=== PATIENT | male | born 2000 | race Caucasian/White ===

== ENCOUNTER 2020-07-02 11:25 | Emergency (ER) | payer OTHER ==
[2020-07-02] MEDS ORDERED: BUFFERED LIDOCAINE 10 ML SYRINGE SUBQ STA (13:44)
--- NOTE | 2020-07-02 13:47 | ED Physician Documentation ---
History of Present Illness - Stated complaint Stated Complaint: L HAND LAC - Chief complaint Chief Complaint: Laceration - Additonal information Additional information: 20-year-old male presents emergency department for evaluation of the left middle distal finger laceration sustained when he was at work. He cut the radial side of the middle finger with a knife. The cut extends from just below the cuticle of the distal phalanx to the middle of the fat pad. Patient's tetanus is up-to-date. This gentleman is in the [employer]. 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 Extends from just below the cuticle to the fat pad. Distal sensation is partially disrupted. Normal flexion extension of finger against resistance.) Results - Vitals Vitals: Vital Signs - 24 hr 07/02/20 11:38 Temperature 36.9 C Heart Rate 66 Respiratory 16 Rate Blood Pressure 147/75 H O2 Saturation 97 Oxygen O2 Source Room air - Rads (name of study) finger xr Radiology: Final report received (no fx) Procedures - Laceration (location) left middle finger Length in cm: 2 Wound type: Linear Neurovascular status: Motor intact, Vascular intact. No: Sensory intact Tendon involvement: Tendon intact Anesthesia: Lidocaine 1% Wound Preparation: Chlorhexadine, Irrigated copiously NS Skin layer closure: Nylon, Size #-0 - enter number (4), Sutures - enter # (3) Other: Patient tolerated well, No complications, Tetanus UTD Complexity: Simple PD MEDICAL DECISION MAKING - ED course Complexity details: reviewed results, re-evaluated patient, d/w patient ED course: 20-year-old male presents the emergency department for laceration on the left distal middle finger sustained when he was at work with the [employer]. Given the location of the laceration and x-ray was completed to rule out fracture but none was seen. He does have some distal numbness and tingling and he may have lacerated the nerve. However tendon is intact. Wound was closed with 3 sutures. Routine wound care and emergent return precautions discussed - Consults Consults: Request consultant teacher evaluate patient Departure - Departure Disposition: 01 Home, Self Care Clinical Impression: Finger laceration Qualifiers: Encounter type: initial encounter Finger: middle finger Damage to nail status: without damage Foreign body presence: without foreign body Laterality: left Qualified Code(s): S61.213A - Laceration without foreign body of left middle finger without damage to nail, initial encounter Condition: Stable Record reviewed to determine appropriate education?: Yes Instructions: ED Laceration Hand Comments: Your suture should be removed in 7 to 10 days. In 24 hours you may remove the dressing wash gently with warm soap and water, apply any antibiotic ointment and a simple bandage. Your tetanus is up-to-date. Please attempt to keep your wound clean and dry. Do not submerge it in dirty dishwater or bath water. Return to the emergency department if you have any concerns of infection such as redness, fevers milky drainage increased pain. follow up with [facility] for suture removal
--- NOTE | 2020-07-02 14:07 | XRAY Report ---
PROCEDURE: Finger(s) LT INDICATIONS: r/o middle finger distal fx TECHNIQUE: AP hand, 2 views of the middle finger(s) acquired. COMPARISON: None FINDINGS: Bones: No fractures or dislocations. No suspicious bony lesions. Soft tissues: No suspicious soft tissue calcifications. IMPRESSION: No fracture or dislocation is seen in third finger. Reviewed by: Aaron Martinez MD on 07/02/2020 2:06 PM PST Approved by: Aaron Martinez MD on 07/02/2020 2:06 PM [facility] Station ID: [id number]
[2020-07-02] MEDS ORDERED: BACITRACIN ZINC OINT 1 PACKET TOP STA (14:25)
[2020-07-02 14:33] VITALS: BP 136/63
== END 2020-07-02 14:40 | disposition home or self-care (01) ==
LOC: EDBD → ED 11:25
DX: S61.213A Laceration without foreign body of left middle finger without damage to nail, initial encounter (principal); W26.0XXA Contact with knife, initial encounter; Y99.1 Military activity
CPT/HCPCS: 12001; 99281; 99283

== ENCOUNTER 2021-06-02 09:45 | Emergency (ER) | payer OTHER ==
[2021-06-02 09:52] VITALS: BP 140/73
[2021-06-02 10:12] LABS: RAPID STREP SCREEN Negative (Negative)
--- NOTE | 2021-06-02 10:34 | ED Physician Documentation ---
PD HPI URI - Stated complaint Stated Complaint: SORE THROAT - Chief complaint Chief Complaint: Heent - History obtained from History obtained from: Patient - History of Present Illness Timing - onset: How many days ago (3) Timing duration: Days (3) Timing details: Gradual onset, Still present Associated symptoms: Fever, Chills, Sore throat, Swollen nodes. No: Nasal congestion, Dry cough, NVD Contributing factors: No: Sick contact Similar symptoms before: Has not had sx before Review of Systems Constitutional: reports: Fever, Chills, Myalgias Nose: denies: Rhinorrhea / runny nose, Congestion Throat: reports: Sore throat Respiratory: denies: Cough GI: denies: Nausea, Vomiting Skin: denies: Rash PD PAST MEDICAL HISTORY - Past Medical History Cardiovascular: None Respiratory: None Neuro: None Endocrine/Autoimmune: None GI: None : None HEENT: None Psych: None Musculoskeletal: None Derm: None - Past Surgical History Past Surgical History: No - Present Medications Home Medications: Ambulatory Orders Medication Instructions Recorded Confirmed Valacyclovir HCl [Valtrex] 500 mg PO DAILY 07/02/20 06/02/21 Amoxicillin 500 mg PO TID #18 cap 06/02/21 dexAMETHasone [Decadron] 4 mg PO DAILY #5 tablet 06/02/21 - Allergies Allergies/Adverse Reactions: Allergies Allergy/AdvReac Type Severity Reaction Status Date / Time No Known Drug Allergies Allergy Verified 06/02/21 09:49 - Social History Does the pt smoke?: No Smoking Status: Never smoker Does the pt drink ETOH?: No Does the pt have substance abuse?: No - Immunizations Immunizations are current?: Yes - POLST Patient has POLST: No PD ED PE NORMAL - Vitals Vital signs reviewed: Yes - General General: Alert and oriented X 3, No acute distress, Well developed/nourished - HEENT HEENT: No: Pharynx benign (enlarged red tonsils with white exudate. No peritonsillar swelling. ) - Neck Neck: Supple, no meningeal sign, Other (anterior adenopathy tender bilaterally. ) - Cardiac Cardiac: RRR, No murmur - Respiratory Respiratory: Clear bilaterally - Abdomen Abdomen: Soft, Non tender - Derm Derm: Normal color, Warm and dry, No rash - Neuro Neuro: Alert and oriented X 3, Normal speech Results - Vitals Vitals: Oxygen O2 Source Room air - Labs Labs: Laboratory Tests 06/02/21 09:55 Group A Strep Rapid Negative PD MEDICAL DECISION MAKING - ED course Complexity details: considered differential (clinically 4/4 Centor. Rapid strep negative. ), d/w patient Departure - Departure Disposition: 01 Home, Self Care Clinical Impression: Exudative tonsillitis Condition: Stable Record reviewed to determine appropriate education?: Yes Follow-Up: EUGENIO ORTIZ MD [Primary Care Provider] - Prescriptions: Amoxicillin 500 mg PO TID #18 cap dexAMETHasone [Decadron] 4 mg PO DAILY #5 tablet Comments: Hydrated. Off work today and tomorrow due to acute illness. Your throat c ulture as well as your Covid test should result in the next day or 2. We will call you if there is any need for change in treatment. You can also look up the results on your patient portal (you can get information at the front end developer javascript html css for how to access that). It does look suggestive clinically of bacterial infection. We will treated with amoxicillin as directed. Also Decadron steroid anti-inflammatory daily for the next several days. Add Tylenol or ibuprofen if needed for pains. He could also use Benadryl liquid periodically as it will numb the throat as you are swallowing it. Recheck if not improving well over the next few days. Forms: Activity restrictions Discharge Date/Time: 06/02/21 11:29
[2021-06-02] MEDS: CHERRY SYRUP 10 ML UDC PO ONE (11:08)
[2021-06-02] MEDS: DEXAMETHASONE 10 MG/ML VIAL PO STA (11:08)
[2021-06-02] MEDS: ACETAMINOPHEN 325 MG TABLET PO STA (11:08)
[2021-06-02] MEDS: diphenhydrAMINE ELIXIR 25 MG/10 ML UDC PO STA (11:08)
[2021-06-02] MEDS: AMOXICILLIN 250 MG CAPSULE PO STA (11:08)
== END 2021-06-02 11:29 | disposition home or self-care (01) ==
LOC: ED 09:45
DX: J03.90 Acute tonsillitis, unspecified (principal); Z20.822 Contact with and (suspected) exposure to COVID-19
CPT/HCPCS: 87070; 87430; 87635; 99283; A9270

== ENCOUNTER 2023-02-12 08:12 | Outpatient (CLI) | payer OTHER ==
--- NOTE | 2023-02-12 14:10 | MRI Report ---
PROCEDURE: CERVICAL SPINE WO INDICATIONS: PARESTHESIA TECHNIQUE: Noncontrast sagittal T1 spin echo and T2 fast spin echo, sagittal STIR, foraminal oblique sagittal T2 fast spin echo, and axial gradient echo or T2 fast spin echo through the cervical spine. COMPARISON: None. FINDINGS: Image quality: Excellent. Alignment and Curvature: There is straightening of the normal cervical lordosis. No significant AP alignment abnormality can be seen. Bone Marrow: Marrow demonstrates normal overall signal. Spinal Cord: Visualized spinal cord has normal size and signal. No cerebellar tonsillar herniation. Paraspinous Soft Tissues: No paravertebral masses. Prevertebral soft tissues are normal in thicknes s. C2-C3: The disc height and disc signal are well preserved. Mild disc osteophyte complex is seen, wit h a mild central/left disc protrusion. There is mild left-sided and no significant right-sided neurof oraminal narrowing. No significant central canal narrowing is seen. C3-C4: The disc height and disc signal are well preserved. Minimal disc osteophyte complex is seen. Mild facet hypertrophy is seen. Moderate bilateral neural foraminal narrowing is seen. No signific ant central canal narrowing is seen. C4-C5: The disc height and disc signal are well preserved. Mild disc to the right. Mild facet hyper trophy is seen. There is mild right-sided and no left-sided neuroforaminal narrowing. No central mónica l narrowing is seen. C5-C6: The disc height and disc signal are well preserved. Mild disc osteophyte complex is seen. There is mild right-sided and moderate left-sided facet hypertrophy. There is at least moderate left- sided and minimal right-sided neuroforaminal narrowing. No significant central canal narrowing is see n. C6-C7: The disc height is relatively well preserved. Mild to moderate disc osteophyte complex is see n. There is at least moderate right-sided and no significant left-sided neuroforaminal narrowing. Min imal central canal narrowing is seen. C7-T1: No significant abnormality is seen. 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 Straightening of the normal cervical lordosis is seen, which is commonly observed in patients with mu scular spasm. Reviewed by: Khurram Tyson MD on 02/12/2023 1:08 PM [facility] Approved by: Khurram Tyson MD on 02/12/2023 1:08 PM [facility] Station ID: [id number]
== END 2023-02-12 08:13 | disposition home or self-care (01) ==
LOC: DI 08:12
DX: R20.2 Paresthesia of skin (principal); M47.812 Spondylosis without myelopathy or radiculopathy, cervical region